=== PATIENT | male | born 1970 | race Caucasian/White ===

== ENCOUNTER 2017-03-13 08:47 | Emergency (ER) | payer MEDICAID ==
[~2017-03-13] VITALS: Ht 182.9 cm; Wt 89.8 kg
[~2017-03-13 08:47] MED LIST: ATENOLOL50 M1 PO; AZITHROMYCIN250 MG PO; BACTRIM DS 8001 TAB PO; CELEXA20 MG PO; CIPRO 500MG TA500 MG PO; CLINDAMYCIN HC300 MG PO; CLONIDINE 0.2M0.2 MG PO; COMBIVENT RESPI1 SPR IH; FLEXERIL10 MG PO; FLOMAX 0.4MG C0.4 MG PO; GABAPENTIN 400400 MG PO; GABAPENTIN800 MG PO; HYDROCHLOROTHIA25 M1 PO; IBU600 MG PO; K-DUR 2020 MEQ PO; LISINOPRIL 10MG10 MG PO; LORTAB 5/500 501 TAB PO; LORTAB 500 MG-71 TAB PO; LORTAB 7.5/5001 TAB PO; MEDROL 4MG. DOSE4 MG PO; NAPROSYN 500MG500 MG PO; OMNICEF 300 MG300 MG PO; PREDNISONE 20MG20 MG PO; ROBITUSSIN120 ML/BOT PO; ULTRAM50 MG PO; VICODIN 5/500 T1 TAB PO; ZITHROMAX Z-PA250 M2 PO
[2017-03-13] MEDS ORDERED: ACTICLATE75 MG PO (08:59)
--- NOTE | 2017-03-13 09:11 | Emergency Room Report ---
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 Clinical Suspician of Infection? Mental Status: Sepsis Risk: Have you (or family members/close friends) recently traveled outside the [place]? If Yes, where/when: Have you had exposure to infectious disease within the past month? TB? Other? Specify: 46 yrs old wm with hx tick bite, rash and joint aches x one week and was diagnoses of lyme disease by [facility] last tuesday. He was advised for doxycyclin 100 mg that he has taken last and missed this morning dose, he has not taken his ibuprofen either, her came this morning to [place] for a bithday republican without his mnedications where he felt joint pain and had no ibuprofen and decided to sign in [place] ED. He denies CP, SOA , NVD. Hedache, neck pain or rigidity, fever or chills. He has last used cocaine 2-3 days ago by snorting, he denies IVD use, Source patient Exam Limitations no limitations ALLERGIES Coded Allergies: metronidazole (From FLAGYL) (Intermediate, I-ITCHING 05/23/15) sulfamethoxazole (From BACTRIM) (Intermediate, I-ITCHING 05/23/15) tramadol (Intermediate, I-HIVES 05/23/15) trimethoprim (From BACTRIM) (Intermediate, I-ITCHING 05/23/15) Home Medications Active Scripts CEFDINIR (Cefdinir) 300 MG PO BID #14 CAP Prov: 05/25/15 Azithromycin (Zithromax) 250 MG PO DAILY #6 TAB Prov: 05/25/15 Prednisone (Prednisone 20MG) 20 MG PO BID #10 TAB Prov: 05/25/15 Potassium Chloride (K-Dur) 20 MEQ PO DAILY #10 TER Prov: 05/25/15 Reported Medications CITALOPRAM HYDROBROMIDE (Citalopram HBr) 40 MG PO DAILY ALBUTEROL/IPRATROPIUM (Combivent Respimat Inhal [place]) 1 PUFF IH BID #4 GABAPENTIN (Gabapentin) 800 MG PO QID Atenolol 50 MG PO DAILY #30 History Medical History General CAD? No Angina: No AK: No Hypertension? Yes Hyperlipidemia? No CHF? No DVT? No PE? No COPD? Yes Asthma? No Anemia? No GERD? No Gastric ulcers? No GI Bleed? No Hernia? No Thyroid Problems? No Hypothyroidism? No CVA? No Seizures? Yes Diabetes? No Renal Insuffiency? No End Stage Renal Disease? No UTI? No Stones? No BPH? Yes GB Disease: Yes Nephritic Syndrome? No Asplenia? No Hepatitis? Yes Sickle Cell Disease? No Arthritis? Yes Migraines? No Cataracts? No Glaucoma? No MRSA? No HIV? No TB? No Anxiety? No Depression? No Cancer? No More? Yes Additional hx: A FIB, HEP C (FROM A TATTOO) ACUTE KIDNEY FAILURE (RESOLVED) Immunization Hx DT/Tetanus NOT SURE Flu Refused Pneumonia Unknown Surgical Hx Previous Surgery?Y CHOLECYSTECTOMY PROSTATE SURGERY-CYST Family History Family Hx Diabetes No CAD No Hypertension No Hyperlipidemia No Cancer Yes TB No Social History Smoking Hx Packs/day 2 1/2 - 3 Packs Alcohol Alcohol: No Review of Systems All Other Systems Reviewed and Negative Constitutional no symptoms reported Eyes no symptoms reported ENT no symptoms reported. Respiratory no symptoms reported Cardiovascular no symptoms reported Gastrointestinal no symptoms reported Genitourinary no symptoms reported. Musculoskeletal see HPI, joint pain Skin see HPI (maculopapular rash) Psychiatric/Neurological no symptoms reported Physical Exam Vital Signs Vital Signs Date Time Temp Pulse Resp B/P Pulse O2 O2 Flow FiO2 Ox Delivery Rate 03/13 0852 98.7 90 20 143/92 97 - WBC >12,000 or <4,000 or 10% bands? 2 or more SIRS Criteria Met? B/P:143/92 MAP:109 Creatinine >2.0? UA output<0.5ml/kg/hr for 2 hrs? Platelet count >100,000? Lactate >2.0mmol/1? INR >1.2 or PTT > than 60 sec? Evidence of Organ Dysfunction? Provider documented clinical suspician of infection? N Sepsis Criteria Count: 2 Sepsis Risk: Possible Sepsis Risk General Appearance normal appearance, WD/WN Eye Exam - bilateral eye normal exam, bilateral eye PERRL, bilateral eye EOMI Ear, Nose, Throat hearing grossly normal, normal ENT inspection Neck normal inspection, non-tender, supple, full range of motion Respiratory Status Yes: trachea midline, chest symmetrical, non tender chest. No: respiratory distress. Lung Sounds bilateral: normal breath sounds, lungs clear. Cardiovascular normal exam, regular rate/rhythm, no peripheral edema, no gallop, no JVD, no murmur, no rub, normal peripheral pulses Peripheral Pulses Pulses normal Yes Gastrointestinal normal bowel sounds, normal exam, non tender, soft, no organomegaly Back normal inspection, no CVA tenderness, no vertebral tenderness Extremities there is diffuse tenderness of hips knees and ankle joints to palpation and passive range of motion. No effusion. No signs of redness or swelling over the joints. No calf tenderness. 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 Medical Decision Making LABS/Meds/Orders Pt receiving controlled substance in ED? 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 Discharge Counseling Counseled pt/family regarding diagnosis, home care, follow up needs ED Critical Care Critical Care No If Critical Care minutes are documented, the time involved in the performance of seperately reportable procedures was not counted toward critical care time documented. I directly delivered medical care to this critically ill and/or injured patient. Timely evaluation and treatment was necessary to address the significant organ system(s) dysfunction present in this patient. at 0910
--- NOTE | 2017-03-13 09:11 | Emergency Room Report ---
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 Clinical Suspician of Infection? Mental Status: Sepsis Risk: Have you (or family members/close friends) recently traveled outside the [place]? If Yes, where/when: Have you had exposure to infectious disease within the past month? TB? Other? Specify: 46 yrs old wm with hx tick bite, rash and joint aches x one week and was diagnoses of lyme disease by [facility] last tuesday. He was advised for doxycyclin 100 mg that he has taken last and missed this morning dose, he has not taken his ibuprofen either, her came this morning to [place] for a bithday democrat without his mnedications where he felt joint pain and had no ibuprofen and decided to sign in [place] ED. He denies CP, SOA , NVD. Hedache, neck pain or rigidity, fever or chills. He has last used cocaine 2-3 days ago by snorting, he denies IVD use, Source patient Exam Limitations no limitations ALLERGIES Coded Allergies: metronidazole (From FLAGYL) (Intermediate, I-ITCHING 05/23/15) sulfamethoxazole (From BACTRIM) (Intermediate, I-ITCHING 05/23/15) tramadol (Intermediate, I-HIVES 05/23/15) trimethoprim (From BACTRIM) (Intermediate, I-ITCHING 05/23/15) Home Medications Active Scripts CEFDINIR (Cefdinir) 300 MG PO BID #14 CAP Prov: 05/25/15 Azithromycin (Zithromax) 250 MG PO DAILY #6 TAB Prov: 05/25/15 Prednisone (Prednisone 20MG) 20 MG PO BID #10 TAB Prov: 05/25/15 Potassium Chloride (K-Dur) 20 MEQ PO DAILY #10 TER Prov: 05/25/15 Reported Medications CITALOPRAM HYDROBROMIDE (Citalopram HBr) 40 MG PO DAILY ALBUTEROL/IPRATROPIUM (Combivent Respimat [facility]hal [facility]) 1 PUFF IH BID #4 GABAPENTIN (Gabapentin) 800 MG PO QID Atenolol 50 MG PO DAILY #30 History Medical History General CAD? No Angina: No CT: No Hypertension? Yes Hyperlipidemia? No CHF? No DVT? No PE? No COPD? Yes Asthma? No Anemia? No GERD? No Gastric ulcers? No GI Bleed? No Hernia? No Thyroid Problems? No Hypothyroidism? No CVA? No Seizures? Yes Diabetes? No Renal Insuffiency? No End Stage Renal Disease? No UTI? No Stones? No BPH? Yes GB Disease: Yes Nephritic Syndrome? No Asplenia? No Hepatitis? Yes Sickle Cell Disease? No Arthritis? Yes Migraines? No Cataracts? No Glaucoma? No MRSA? No HIV? No TB? No Anxiety? No Depression? No Cancer? No More? Yes Additional hx: A FIB, HEP C (FROM A TATTOO) ACUTE KIDNEY FAILURE (RESOLVED) Immunization Hx DT/Tetanus NOT SURE Flu Refused Pneumonia Unknown Surgical Hx Previous Surgery?Y CHOLECYSTECTOMY PROSTATE SURGERY-CYST Family History Family Hx Diabetes No CAD No Hypertension No Hyperlipidemia No Cancer Yes TB No Social History Smoking Hx Packs/day 2 1/2 - 3 Packs Alcohol Alcohol: No Review of Systems All Other Systems Reviewed and Negative Constitutional no symptoms reported Eyes no symptoms reported ENT no symptoms reported. Respiratory no symptoms reported Cardiovascular no symptoms reported Gastrointestinal no symptoms reported Genitourinary no symptoms reported. Musculoskeletal see HPI, joint pain Skin see HPI (maculopapular rash) Psychiatric/Neurological no symptoms reported Physical Exam Vital Signs Vital Signs Date Time Temp Pulse Resp B/P Pulse O2 O2 Flow FiO2 Ox Delivery Rate 03/13 0852 98.7 90 20 143/92 97 - WBC >12,000 or <4,000 or 10% bands? 2 or more SIRS Criteria Met? B/P:143/92 MAP:109 Creatinine >2.0? UA output<0.5ml/kg/hr for 2 hrs? Platelet count >100,000? Lactate >2.0mmol/1? INR >1.2 or PTT > than 60 sec? Evidence of Organ Dysfunction? Provider documented clinical suspician of infection? N Sepsis Criteria Count: 2 Sepsis Risk: Possible Sepsis Risk General Appearance normal appearance, WD/WN Eye Exam - bilateral eye normal exam, bilateral eye PERRL, bilateral eye EOMI Ear, Nose, Throat hearing grossly normal, normal ENT inspection Neck normal inspection, non-tender, supple, full range of motion Respiratory Status Yes: trachea midline, chest symmetrical, non tender chest. No: respiratory distress. Lung Sounds bilateral: normal breath sounds, lungs clear. Cardiovascular normal exam, regular rate/rhythm, no peripheral edema, no gallop, no JVD, no murmur, no rub, normal peripheral pulses Peripheral Pulses Pulses normal Yes Gastrointestinal normal bowel sounds, normal exam, non tender, soft, no organomegaly Back normal inspection, no CVA tenderness, no vertebral tenderness Extremities there is diffuse tenderness of hips knees and ankle joints to palpation and passive range of motion. No effusion. No signs of redness or swelling over the joints. No calf tenderness. Rectal deferred Neurologic alert, repeat chief II-XII nml as tested, normal exam, no motor/sensory deficits, oriented x 3 Mental status normal mood/affect Skin rash, maculopapular rash that is worse(reddish) over LEFT legin compared to the RIGHT 9more of a faint light brown) leg distally. Medical Decision Making LABS/Meds/Orders Pt receiving controlled substance in ED? 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 Discharge Counseling Counseled pt/family regarding diagnosis, home care, follow up needs ED Critical Care Critical Care No If Critical Care minutes are documented, the time involved in the performance of seperately reportable procedures was not counted toward critical care time documented. I directly delivered medical care to this critically ill and/or injured patient. Timely evaluation and treatment was necessary to address the significant organ system(s) dysfunction present in this patient. at 0910
[2017-03-13 09:23] VITALS: BP 143/92
== END 2017-03-13 09:24 | disposition left against medical advice (07) ==
LOC: ER 08:47
DX: A69.23 Arthritis due to Lyme disease (principal); T36.4X6A Underdosing of tetracyclines, initial encounter; T39.316A Underdosing of propionic acid derivatives, initial encounter; Z91.128 Patient's intentional underdosing of medication regimen for other reason; F14.10 Cocaine abuse, uncomplicated; I10 Essential (primary) hypertension; Z79.899 Other long term (current) drug therapy; Z53.21 Procedure and treatment not carried out due to patient leaving prior to being seen by health care provider